=== PATIENT | male | born 1995 | race Caucasian/White ===

== ENCOUNTER 2016-07-04 07:29 | Emergency (ER) | payer SELFPAY ==
[~2016-07-04] VITALS: Ht 180.3 cm; Wt 75.9 kg
[2016-07-04 07:31] VITALS: BP 155/100; PULSE 110; RESP 14; O2SAT 99
--- NOTE | 2016-07-04 07:36 | ED.REPORT ---
HPI-Rash / Abscess Date of Service July 04, 2016 ED Provider: Paris Reece MD Patient is a 20 year old male who presents to the ED complaining of a mass on his left thigh onset this morning. Associated symptoms include left thigh pain for the past two days. He denies fever, chills, nausea, vomiting, or myalgias. The patient reports that the pain is exacerbated by movement and rates it as a 6 /10. He states he has never had something like this before. Nursing Notes Stated Complaint: LUMP ON LEFT THIGH Chief Complaint: Skin Rash/Abscess Nursing Notes Reviewed: Yes Allergies: Coded Allergies: No Known Allergies (Unverified , 07/04/16) Scheduled Sulfamethoxazole/Trimeth 800-160 mg (Bactrim DS) 1 Each Tablet 1 TABLET PO BID Scheduled PRN Hydrocodone-Acetaminophen 5-325 mg (Hydrocodone-Acetaminophen 5-325 mg) 1 Each Tablet 1 TABLET PO Q4H PRN PRN For Pain General Time Seen by MD: 07:35 Chief Complaint Other (mass on left thigh) Hx Obtained From: Patient Arrived By: Walk-in Onset Occurred: Just prior to arrival Location: : Lower extremity Severity: Current: Pain level 6 out of 10 Associated with: Denies Myalgia, Denies Nausea Recent Healthcare: No recent doctor visit, No recent hospitalization Similar Sx Previous: No Past Medical History Past Medical History none reported Past Surgical History none reported Smoking History Current Every Day Smoker Social History Drug Use: Denies drug use Ambulatory Status Independent Review of Systems Review of Systems Note: mass on left thigh Constitutional: Denies: Chills, Fever Respiratory: Denies: Shortness of breath GI: Denies: Nausea, Vomiting Musculoskeletal: Denies: Myalgia Physical Exam Initial Vital Signs Vital Signs (First) Date Time Temp Pulse Resp B/P Pulse Ox O2 Delivery O2 Flow Rate FiO2 07/04/16 07:31 36.8 110 14 155/100 99 Room Air Initial VS: Reviewed, Vital signs normal General/Constitutional: Awake, Alert Skin: Color NL, No rash, Warm, Dry Head / Eyes: Atraumatic, Normocephalic, PERRL, EOMI Respiratory / Chest: Atraumatic, Breath sounds NL, Breath sounds = bilat, No respiratory distress Cardiovascular: Regular rhythm, Heart sounds NL Heart Rate / Rhythm: Positive: Tachycardia Upper Extremity / MS: Atraumatic, Full range of motion Lower Extremity / Pelvis / MS: Atraumatic, Full range of motion 4 cm mobile mass to the left lateral proximal thigh no fluctuance no erythema no warmth tender to palpation Neurologic: Oriented X3, Speech NL, No motor deficits, No sensory deficits Abdomen: Atraumatic, Soft, Non-tender Psychiatric: Affect NL, Mood NL Interpretation & Diagnostics Interpretation & Diagnostics: ULTRASOUND: abscess on left thigh Reported by the tech Re-Eval/Medical Decision Med Decision/Clinical Course The patient presents with a painful swelling to his left lateral thigh. It does not look like an obvious abscess, the only consistent finding is pain with palpation. Ultrasound was obtained and it appears to be an abscess. The patient was started on his antibiotic. At this point he is not showing any systemic signs of illness, he is tachycardic and hypertension which are likely related to pain. Re-Evaluation/Progress : Time of Eval: 08:40 Re-Evaluation/Progress Note: Discussed ultrasound results and plan for discharge. The patient understands and agrees to the plan for discharge. All questions were addressed. Counseled Regarding: Diagnosis, Lab results, Need for follow-up, When/why to return to ED Discharge & Departure Impression: Primary Impression: Abscess Disposition: Home Discharge Condition All VS Reviewed: Yes Condition: Stable Patient Instructions: Abscess (GEN) Additional Instructions: Your ultrasound show that you have an abscess. Take the antibiotic, Bactrim as prescribed (every 12 hours). Follow up with your primary care physician or return to the emergency department in 3-4 days for a re-evaluation. Return to the emergency department sooner if you develop any new or worsening symptoms including fever. Referrals: [facility] Nubia Attestation Portions of this note were transcribed by Aundrea Collins. I, Dr. Reece personally performed the history, physical exam and medical decision-making; I reviewed and confirmed the accuracy of the information in the transcribed note. Signed by: Nubia Randle, 07/04/16 and [id number] copies to: [facility] Paris Reece MD July 04, 2016 07:36 Teresa Collins July 04, 2016 07:44
[2016-07-04] MEDS ORDERED: HYDROcodone-APAP 5-325 mg Tablet PO ONE (07:40)
[2016-07-04] MEDS ORDERED: Trimethoprim-Sulfa 160 mg-800 mg Tablet PO ONE (08:40)
[2016-07-04] MEDS ORDERED: SULF1TAB7 PO (08:43)
[2016-07-04] MEDS ORDERED: HYDR-4003 PO (08:43)
[2016-07-04 09:00] VITALS: BP 169/115; PULSE 115
--- NOTE | 2016-07-04 09:11 | DRSVH ---
PROCEDURE: US EXTREMITY SONOGRAM LIMITED ([id number]) INDICATIONS: painful lump TECHNIQUE: Real-time scanning was performed of the left lower extremity, with image documentation. COMPARISON: None. FINDINGS: In the area of clinical concern, there is a poorly defined approximately 1.5 x 2.1 x 1.1 cm hypoechoic focus with surrounding subcutaneous edema. No internal vascularity is seen. No definite d rainable fluid collection is seen. IMPRESSION: Ill-defined heterogeneous hypoechoic region in the area of clinical concern with no internal vascular ity. This could represent hematoma (bland or infected)/phlegmon however recommend clinical correlatio n and followup to document resolution and exclude soft tissue mass. If this does not spontaneously re solve clinically, recommend repeat imaging with ultrasound or contrast-enhanced MRI to exclude neopla sm. Recommend clinical correlation. Dictated by: Willian Raman M.D. on 07/04/2016 at 9:06 Approved by: Willian Raman M.D. on 07/04/2016 at 9:10
== END 2016-07-04 08:55 | disposition home or self-care (01) ==
LOC: SED 07:29
DX: L02.416 Cutaneous abscess of left lower limb (principal); F17.200 Nicotine dependence, unspecified, uncomplicated